=== PATIENT | female | born 1930 | race Caucasian/White ===

== ENCOUNTER 2017-07-30 06:04 | Inpatient (IN) | payer OTHER ==
[2017-07-16 10:08] LABS: ABSOLUTE EOSINOPHILS 0.1 thou/uL (0.0-0.7); ABSOLUTE LYMPHOCYTES 1.6 thou/uL (0.8-5.3); ABSOLUTE MONOCYTES 0.5 thou/uL (0.0-1.2); ABSOLUTE NEUTROPHILS 4.1 thou/uL (1.6-8.1); BASOPHILS 0.6 %; EOSINOPHILS 1.3 %; HEMATOCRIT 45.9 % (37.0-47.0); HEMOGLOBIN 15.7 gm/dL (12.0-15.0); LYMPHOCYTES 25.5 %; MCH 33.6 pg (26.0-34.0); MCHC 34.2 g/dL (28.0-37.0); MONOCYTES 7.8 %; MPV 7.8 fl. (7.2-11.1); NUCLEATED RBCS 0 /100WBC; PLATELET COUNT* 204 thou/uL (150-400); POLYS 64.8 %; RBC 4.69 mil/uL (4.20-5.00); RDW-CV 13.2 % (10.5-14.5); WBC 6.4 thou/uL (4.0-11.0)
[2017-07-16 10:18] LABS: INR 1.1; PROTIME 10.4 Seconds (9.20-11.50)
[2017-07-16 10:25] LABS: ALBUMIN 3.8 g/dL (3.4-5.0); CALCIUM 9.3 mg/dL (8.5-10.1); CREATININE 0.8 mg/dL (0.6-1.3); POTASSIUM 3.7 mmol/L (3.5-5.1); TOTAL BILIRUBIN 0.7 mg/dL (<0.1-1.0); TOTAL PROTEIN 7.7 g/dL (6.4-8.2)
[2017-07-16 11:17] LABS: ESR (SEDRATE) 6 mm/hr (0-30)
--- NOTE | 2017-07-16 12:54 | EKG ---
[place] [address] ELECTROCARDIOGRAM REPORT Name: JAGDISH ROTH Room: PRE IN [facility]#: [id number] Admission: Attend Phys: Tani Stout Discharge: Date of : 34 Report #: [id number] THIS REPORT FOR: //name// [facility] Test Date: 2017-07-16 Test Time: 09:00:52 Pat Name: JAGDISH ROTH Department: Room: Gender: F Flash Developer: : 1930 Requested By: Merlin Cunningham Order Number: [id number] Reading MD: Bhaskar Brown Measurements Intervals [place] Rate: 70 P: 54 SD: 163 QRS: 15 QRSD: 89 T: 51 QT: 394 QTc: 426 Interpretive Statements Sinus rhythm Compared to ECG 01/20/2017 09:53:00 No significant changes Electronically Signed On 07-16-2017 12:53:59 QA SOFTWARE TESTER by Bhaskar Brown [email or web address] <ELECTRONICALLY SIGNED> By: Bhaskar Brown MD, [facility] 07/16/17 1253 0900 9 Bhaskra Brown MD, FACC /EPI
[~2017-07-30] VITALS: Ht 154.9 cm; Wt 63.5 kg
[~2017-07-30 06:04] MED LIST: METFORMIN HCL500 MG PO
[2017-07-30 07:23] VITALS: BP 142/88
[2017-07-30 11:40] VITALS: BP 151/74
[2017-07-30 15:18] VITALS: BP 149/75
--- NOTE | 2017-07-30 18:28 | NUR ---
Pt A&OX4 this shift CV-SI & S2, Regular rhythm Resp- Clear throughout GI- No concerns at this time - No concerns at this time Diet-Pt has carb controlled diet, pt had Nausea and Vomiting at 1724, zofran provided. Pain-Pt taking [place] for pain control this shift Other- Pt has hemovac, patent at this time. Pt resting in bed, VSS, call light within reach, family at bedside. Hourly rounding has been maintained this shift.
[2017-07-30 21:00] VITALS: BP 114/56
[2017-07-30 23:53] VITALS: BP 132/67
[2017-07-31 04:00] VITALS: BP 122/75
[2017-07-31 04:27] LABS: HEMATOCRIT 35.6 % (37.0-47.0); HEMOGLOBIN 12.1 gm/dL (12.0-15.0)
--- NOTE | 2017-07-31 06:57 | NUR ---
Alert and oriented x 4. Rt knee mepilex dressing is dry and intact with polarcare in place. She had pain meds x 2 this shift. She has slept well. started CPM this am.
--- NOTE | 2017-07-31 07:39 | OP ---
[address] [address] OPERATIVE REPORT Name: JAGDISH ROTH Room: [address] IN ..#: [id number] Admission: 07/30/17 Attend Phys: Tani Stout Discharge: Date of : 34 Report #: [id number] THIS REPORT FOR: //name// CC: Merlin Saleh DICTATED BY: Christ Farris DO ADDENDUM IMPLANTS: Evolution MP, PS femoral component, size 4, Evolution MP keel tibial baseplate size 4, 14 mm posterior stabilized poly and a 29 mm patella. <ELECTRONICALLY SIGNED> By: Holger Bourne DO 07/31/17 0739 1011 [id number] Cunningham DO /nt
--- NOTE | 2017-07-31 07:51 | NUR ---
KNEE PT REFERRED TO PHYSICAL THERAPY AT THIS TIME. PLEASE CONSULT OT IF THERE IS A CHANGE IN STATUS.
[2017-07-31 08:36] VITALS: BP 154/76
--- NOTE | 2017-07-31 14:52 | NUR ---
SPOKE WITH PT.AND DAUGHTER,OWEN. PT.WAS ALERT AND ORIENTED. STATED SHE LIVES BY HERSELF. DAUGHTER,OWEN,WILL BE WITH HER AFTER SHE GOES HOME. SHE HAS A WALKER. SHE IS NORMALLY INDEPENDENT AND ACTIVE. THEY WOULD LIKE [facility] FOR HOME HEALTH. REFERRAL MADE TO [facility]. DISCUSSED ELIQUIS,PAIN MEDS,CPM AND POLAR PACK. DAUGHTER SAID ALL THE PAIN MEDS ARE MAKING PT.NAUSEOUS SO THEY HAVE JUST GIVEN HER TYLENOL AND SHE IS DOING MUCH BETTER. CM WILL FOLLOW FOR DISCHARGE. [phone]/[phone]
[2017-07-31 15:32] VITALS: BP 154/76
[2017-07-31 16:27] VITALS: BP 151/63
--- NOTE | 2017-07-31 18:01 | NUR ---
ASSUMED CARE OF PATIENT AFTER REPORT THIS MORNING. PATIENT AWAKE, ALERT, AND ORIENTED APPROPRIATELY. PHYSICAL ASSESSMENT COMPLETED AND CHARTED. COMPLAINED OF PAIN THIS SHIFT. GIVEN PRN AND SCHEDULED MEDICATIONS, SEE EMAR FOR DOCUMENTATION. VITAL SIGNS STABLE. OXYGEN SATURATION WITHIN NORMAL LIMITS ON 2 LPM PER NASAL CANULA. PATIENT TRANSFERS AND AMBULATES WITH ASSISTANCE FROM STAFF. USES CALL LIGHT APPROPRIATELY, WITHIN REACH. DENIES NEEDS AT THIS TIME. NURSING WILL CONTINUE TO MONITOR.
[2017-07-31 20:00] VITALS: BP 129/86
--- NOTE | 2017-07-31 22:55 | NUR ---
THIS NURSE ASSUMES CARE OF PT [id number], PT IS ALERT AND OREINTED X4, FORGETFUL AT TIMES, PT UP TO BSC WITH ASSIST X1, GAITBELT AND WALDER USED, PT USES cpm TONIGHT, PT DOES REPORT RT KNEE PAIN, PT HAD RECEIVED PAIN MEDICATION IN THE PRIOR SHIFT, PT SAYS TO CALL HER DAUGHTER TO SEE IF SHE CAN HAVE SOMETHING STRONGER FOR PAIN, PTS DAUGHTER RELLA UNABLE TO BE REACHED BY TELEPHONE, PT DOES NOT COMPLAIN ANY FURTHER, REPORT GVEN TO [facility] AT 2236
[2017-07-31 23:48] VITALS: BP 139/68
[2017-08-01 03:48] VITALS: BP 140/70
[2017-08-01 04:05] LABS: HEMATOCRIT 35.6 % (37.0-47.0); HEMOGLOBIN 12.2 gm/dL (12.0-15.0)
--- NOTE | 2017-08-01 05:17 | NUR ---
RESUMED CARE OF PATIENT FROM TREVIN LY. I CONCUR WITH HER DOCUMENTATION. PT RESTING COMFORTABLY MOST OF SHIFT. PT UP SEVERAL TIMES TO BSC WITH ASSIST. NO REPORTS OF PAIN. WILL CONTINUE WITH PLAN OF CARE.
[2017-08-01 08:00] VITALS: BP 135/65
--- NOTE | 2017-08-01 08:00 | NUR ---
AM ASSESSMENT COMPLETE, DEFER TO COMPUTER CHARTING. DRESSING CDI TO RIGHT KNEE, EDEMA NOTED IN BILATERAL LOWER EXTREMITIES. DENIES CHEST PAIN, DIZZINESS - WILL GIVE TYENOL WITH AM MEDS TO ASSIST WITH PAIN CONTROL PRIOR TO GETTING UP AND THERAPY. CALL LIGHT WITHIN REACH, FAMILY AT BEDSIDE. WILL MONITOR.
--- NOTE | 2017-08-01 17:08 | NUR ---
NOTIFIED [facility] THAT PLAN IS FOR PT.TO DISCHARGE TOMORROW. NURSING WILL FAX ORDERS. DAUGHTER,OWEN, ASKS THAT HOME HEALTH CALL HER ON HER CELL PHONE TO SET UP APPT.S MOTHER DOESNOT HAVE A CELL PHONE. INFORMED [facility] OF THIS. [phone]/[phone].
[2017-08-01 17:54] VITALS: BP 135/71
[2017-08-01 20:20] VITALS: BP 104/45
[2017-08-02] VITALS: BP 116/58
[2017-08-02 04:00] VITALS: BP 120/70
--- NOTE | 2017-08-02 06:33 | NUR ---
PATIENT HAS REMAINED ALERT AND ORIENTED X 4 THROUGHOUT THE SHIFT AND RESTING QUIETLY ON HOURLY ROUNDS. UP TO BSC WITH WALKER AND GAIT BELT WITH MOD ASSIST AND CUEING. DENIED NEED FOR PAIN MEDICATION, CPM AT HS 0-90 DEGREES. TOLERATED WELL. NO NAUSEA. VITAL SIGNS STABLE. HOPING TO GO HOME TODAY. CONTINUE TO MONITOR.
[2017-08-02 08:15] VITALS: BP 109/59
[2017-08-02] MEDS ORDERED: COLACE 100 MG100 MG PO (09:11)
[2017-08-02] MEDS ORDERED: ULTRAM 50MG TAB50 MG PO (10:36)
[2017-08-02] MEDS ORDERED: ELIQUIS2.5 MG PO (10:37)
[2017-08-02 10:43] VITALS: BP 154/76
[2017-08-02] MEDS ORDERED: TYLENOL325 MG PO (13:03)
--- NOTE | 2017-08-02 14:28 | NUR ---
PATIENT UNABLE TO AFFORD ELOQUIS. SPOKE WITH DR. WYATT. ORDERS FOR LOVENOX 40MG SUBQ DAILY#11. CALLED LOVENOX INTO [facility]. AWAITING COPAY.
[2017-08-02] MEDS ORDERED: ENOXAPARIN40 MG/0.1 SUBQ (15:01)
--- NOTE | 2017-08-02 15:02 | NUR ---
COPAY ON [place] 88.03. PER DAUGHTER THIS AMOUNT IS OK. DAUGHTER IS FAMILIAR WITH SUBQ INJECTIONS AND IS COMFORTABLE GIVING HER MOM THE INJECTIONS AT HOME. EDUCATION GIVEN.
[2017-08-02] MEDS ORDERED: ASPIRIN325 PO (15:14)
[2017-08-02 15:50] VITALS: BP 154/76
[2017-08-02 16:49] VITALS: BP 154/76
--- NOTE | 2017-08-02 16:49 | NUR ---
PATIENT ALERT AND ORIENTED THROUGHOUT SHIFT. VITAL SIGNS STABLE ON ROOM AIR. FALL PRECAUTIONS MAINTAINED. FAMILY AT BEDSIDE UNTIL DISCHARGE. PAIN WAS MANAGED WITH PO PAIN MEDICATION. WORKED WITH THERAPY TWICE BEFORE DISCHARGE. DISCUSSED DISCHARGE WITH PATIENT AND DAUGHTER, BOTH VERBALIZED FULL UNDERSTANDING. PRESCRIPTIONS GIVEN TO PATIENT. ALL BELONGINGS SENT WITH PATIENT WHEN SHE LEFT THE UNIT WITH HER DAUGHTER AT 1550.
--- NOTE | 2017-08-03 10:54 | S ---
[place] [address] SURGICAL PATH RPT PROCEDURE Name: LORENA ROTH Room: [address] IN M.R.#: [id number] Admission: 07/30/17 Date of : 34 Discharge: 08/02/17 Report #: [id number] Path Case #: [id number] PATHOLOGY REPORT COLLECTION DATE: 07/30/2017 RECEIVED DATE: 07/30/2017 SUBMITTING PHYS: Dr. Merlin Cunningham OTHER PHYS: Dr. Genoveva Saleh SPECIMEN(S) RECEIVED: Kai.R knee bone and tissue * * * * * * * * * * * * FINAL DIAGNOSIS: Right knee bone and tissue, total knee replacement: - Benign meniscus and synovium and benign bone and cartilage including hematopoietic elements with degenerative changes. ([facility]; 08/03/2017) PATHOLOGIST: Luis Baker M.D. REPORT ELECTRONICALLY SIGNED BY: Luis Baker M.D. DATE/TIME: 08/03/2017 10:54 * * * * * * * * * * * * GROSS PATHOLOGY: Received in formalin labeled "Lorena Weller, right knee bone and tissue" is a 16.5 x 14.5 x 2.7 cm aggregate of camp-white portions of bone. Six of the bone portions have camp-white cartilaginous-covered articular surfaces. The remaining surfaces are smooth and grossly consistent with surgical resection margins. The articular surfaces have roughened areas of eburnation over 75% of the surfaces. Additionally present within the container is a 5.5 x 5.0 x 0.8 cm aggregate of camp-white rubbery soft tissue and camp-yellow lobulated soft tissue. Closing Manager sections of the specimen are submitted in cassette A1 following decalcification. ([facility]; 07/30/2017) CLINICAL HISTORY: Right knee DJD, end-stage osteoarthritis. INITIAL CPT CODE(S): A; 57046, 77732 Professional services performed [place] [id number] [place] [address] SURGICAL PATH RPT PROCEDURE Name: LORENA ROTH Room: [address] IN M.R.#: [id number] Admission: 07/30/17 Date of : 34 Discharge: 08/02/17 Report #: [id number] Path Case #: [id number] Technical services performed by [id number] at [address] [place] [address], [facility] [address] [address]. [place] [address] PHONE: [phone] DIRECTOR: Juan J Lee M.D. * * * END OF REPORT * * *
--- NOTE | 2017-09-03 11:54 | OP ---
[address] [address] OPERATIVE REPORT Name: DUSTIN ROTHFILIPE Everett Room: [address] IN .R.#: [id number] Admission: 07/30/17 Attend Phys: Tani Stout Discharge: 08/02/17 Date of : 34 Report #: [id number] THIS REPORT FOR: //name// CC: Merlin Saleh DICTATED BY: Christ Farris DO DATE OF SERVICE: 07/30/2017 PREOPERATIVE DIAGNOSIS: Advanced degenerative joint disease, right knee. POSTOPERATIVE DIAGNOSIS: Advanced degenerative joint disease, right knee. PROCEDURE PERFORMED: Right total knee arthroplasty. PRIMARY SURGEON: Merlin Cunningham DO DIRECTOR OF LABORATORY OPERATIONS: Christ Farris DO SECOND ASSIST: Julio Mckeon DO ANESTHESIA: General with local capsular block and IV regional. ESTIMATED BLOOD LOSS: 150 SPECIMENS: None. COMPLICATIONS: None. DRAINS: Medium Hemovac. TOURNIQUET: 58 minutes, 290. ANTIBIOTICS: 1 g Ancef preop. INDICATIONS: The patient is an 87-year-old female that has been seen multiple times in our clinic regarding her knee pain. She unfortunately has continued to have knee pain despite conservative treatment, it is affecting her ability to perform ADLs and quality of life. She presents today for above-mentioned procedure. Risks, benefits, alternatives to surgery have been reviewed and discussed with her and she is wishing to proceed. DESCRIPTION OF PROCEDURE: The patient taken to the OR suite, placed supine OR table, given the benefit of general anesthetic. A well-padded tourniquet was [facility] [address] [place] [address] OPERATIVE REPORT Name: JAGDISH ROTH Marguerite Room: [address] IN [facility].#: [id number] Admission: 07/30/17 Attend Phys: Tani Stout Discharge: 08/02/17 Date of : 34 Report #: [id number] placed in the right upper thigh. She was then prepped and draped in the usual sterile fashion. Prior to procedure, time-out was taken confirming correct site, patient and procedure. The procedure began with midline incision over the right knee. Dissection was carried down through subcutaneous tissue to the level of the joint capsule. A second knife was used to perform medial parapatellar arthrotomy. Anterior horn of medial and lateral meniscus, ACL, PCL, fat pad were removed. Patella was everted and the knee was brought into extension. Opening drill was used to access the femoral canal. Intramedullary guide allyson was placed. Distal femoral cutting block was pinned in 5 degrees of valgus. Distal femur resection was set at 12 mm, plugs pinned in place, cut was made. Size of the femur was measured a size 4, 4-in-[address] block pinned in place and these cuts were made as well. Please note retractors were placed to appropriately protect all vital structures during bone cuts. We then performed our notch cut, using the cutting guide and it was pinned in place as well. Next, we directed our attention to the tibia, tibial surface was fully exposed. Remaining meniscus was removed. The PCL retractor was placed. The extramedullary guide allyson was used to place the proximal tibial cutting block, this was measured 2 mm from the low side, which was the medial side in her case. The block was pinned in place, referencing the mid body, talus and medial third tibial tubercle. This was checked with sheryl wing and felt to be appropriate depth. Proximal tibia cut was then performed. All excess bone was removed. Medial osteophytes were trimmed down, tibia was sized at a size 4. This was once again referencing the mechanical axis and medial third tibial tubercle with drop allyson, trial femur placed and a trial spacer. We then directed attention to the patella. This was resurfaced using free hand cut with oscillating saw and appropriately sized to a 29, trial button was placed. Knee was taken through range of motion, found to be stable in flexion, extension with 14 mm trial, we then removed all components. The proximal tibia was prepared using the drill and Kerrison punch. Knee was thoroughly irrigated while cement was mixed on the back table. Final implants were placed, beginning with a tibial tray, followed by the femur and then the patella. All excess cement was removed. The knee was held in a single position while cement adequately hardened. Once cemented adequately hardened, once again a 14 mm insert was trialed. This provided the best stability and good full range of motion. Final poly liner was placed with a good fit. Knee again taken through range of motion. Patellar tracking well and well balanced. The tourniquet was let down. IV TXA was placed in the wound. The wound was thoroughly irrigated and hemostasis was obtained. A posterior capsular block was performed. Capsule closed with interrupted #1 Vicryl, 2-0 interrupted Vicryl for skin as well as otf. Sterile dressing was applied. The patient tolerated the procedure well and was transferred to PACU in good stable condition. All sponge and needle counts correct x 2. <ELECTRONICALLY SIGNED> By: Merlin Cunningham DO 09/03/17 1154 1009 113[facility] Centerwarren Cunningham DO /nt
== END 2017-08-02 15:50 | disposition home health service (06) | DRG 470 ==
LOC: M.TBA 06:04 → M.PRE 06:34 → M.ORTHSURG 11:58
PROVIDERS: Orthopaedic Surgery; ADMIT Internal Medicine
PROC: 0SRC0J9 Replacement of Right Knee Joint with Synthetic Substitute, Cemented, Open Approach (ICD-10-PCS; principal; 2017-07-30)
PROC: 3E0T3BZ Introduction of Anesthetic Agent into Peripheral Nerves and Plexi, Percutaneous Approach (ICD-10-PCS; 2017-07-30)
DX: M17.11 Unilateral primary osteoarthritis, right knee (principal); J98.11 Atelectasis; E11.9 Type 2 diabetes mellitus without complications; Z90.49 Acquired absence of other specified parts of digestive tract; Z98.49 Cataract extraction status, unspecified eye